=== PATIENT | female | born 1960 | race Caucasian/White ===

== ENCOUNTER 2016-06-10 01:03 | Emergency (ER) | payer OTHER, MEDICARE ==
[~2016-06-10] VITALS: Ht 170.2 cm; Wt 73.5 kg
[2016-06-10 01:07] VITALS: Ht 170.2 cm; Wt 73.5 kg
[2016-06-10] MEDS ORDERED: IBUPROFEN 600 MG TAB PO ONE (03:00)
--- NOTE | 2016-06-10 03:44 | RADRPT ---
PROCEDURE: XR Foot. CLINICAL INDICATION: Fall. Left foot pain. TECHNIQUE: 3 views of the left foot were obtained. COMPARISON: None. FINDINGS: No fracture or dislocation is seen. No foreign body is seen. No marked soft tissue swelling. No s ignificant degenerative change. Rings on the second toe obscure visualization. Tiny heel spur. IMPRESSION: No definite acute fracture or dislocation. Evaluation of the second toe is limited by toe rings. RPTAT: [facility] Physician Reyna Date Time Electronically viewed and signed by Susan Dow Physician on 06/10/2016 03:44 LE/
[2016-06-10] MEDS ORDERED: IBUP800T25 PO (03:49)
--- NOTE | 2016-06-10 06:21 | ERD ---
ER Documentation Chief Complaint Date/Time DATE: 06/10/16 TIME: 06:12 Chief Complaint LT FOOT PAIN S/P MECHANICAL FALL @ 1999 HPI 55-year-old female complaining of left foot pain after a fall. Patient stated that she slipped on her grandchild's toy at home, and bend her left foot backwards. She now has pain on a pop on her left foot. Patient states that she was able to bear weight after the fall. Denies any other injuries. ROS All systems reviewed and are negative except as per history of present illness. Medications Home Meds Active Scripts Ibuprofen* (Motrin*) 800 Mg Tab, 800 MG PO Q6H Y for PAIN AND OR ELEVATED TEMP, #30 TAB Prov:NOLAN BEAR. AERODYNAMICS TEACHER 06/10/16 PMhx/Soc History of Surgery: Yes (LFA fx repair, back sx) Anesthesia Reaction: No Hx Neurological Disorder: Yes (stroke) Hx Alcohol Use: No Hx Substance Use: No Hx Tobacco Use: No Smoking Status: Never smoker Physical Exam Vitals Vital Signs Date Time Temp Pulse Resp B/P Pulse Ox O2 Delivery O2 Flow Rate FiO2 06/10/16 01:07 96.7 78 17 125/71 99 Physical Exam General impression: Well-developed, well-nourished. Alert, oriented, in no acute distress Head: Normocephalic, atraumatic. Eyes: PERRL, EOM normal. Sclerae are normal. Conjunctiva not injected. Neck: Supple, nontender. No lymphadenopathy. No nuchal rigidity. Respiration: Normal respiratory effort. Lungs clear to auscultate bilaterally. No wheezes, rales or rhonchi. Cardiovascular: Regular rate and rhythm. No murmurs or extra heart sounds. Extremities: Bilateral feet normal to inspection, no erythema, swelling, or ecchymosis. Toe rings noted in the bilateral second toes, no toe swelling or tenderness, neurovascularly intact. Diffuse tenderness noted on the dorsal aspect of the left foot. ROM normal. Neuro: Mental status normal, speech normal. COMM[employer]ITIES BROKER grossly intact. Skin: Normal turgor. No rash or lesions. Psych: Normal mood and affect. Results 24 hrs Current Medications Medications (Trade) Dose Ordered Sig/[place] Route PRN Reason Start Time Stop Time Status Last Admin Dose Admin Ibuprofen (Motrin) 600 mg ONCE ONCE PO 06/10/16 03:00 06/10/16 03:01 DC 06/10/16 02:45 PROCEDURE: XR Foot. CLINICAL INDICATION: Fall. Left foot pain. TECHNIQUE: 3 views of the left foot were obtained. COMPARISON: None. FINDINGS: No fracture or dislocation is seen. No foreign body is seen. No marked soft tissue swelling. No significant degenerative change. Rings on the second toe obscure visualization. Tiny heel spur. IMPRESSION: No definite acute fracture or dislocation. Evaluation of the second toe is limited by toe rings. RPTAT: [facility] Physician Reyna Date Time Electronically viewed and signed by Susan Dow Physician on 06/10/2016 03 :44 LE/ CC: NOLAN BEAR AERODYNAMICS TEACHER Procedures/MDM Well-appearing 55-year-old female presented ED was left foot pain. Ibuprofen given to the patient in the ED. X-ray was obtained, no fractures or dislocations were noted. Likely patient had sustained a strain or sprain of the left foot. The area of injury was immobilized with an Papo wrap. Patient was noted to be comfortable and neurovascularly intact both before and after the immobilization. Patient given crutches for ambulation. Patient appears well, stable for discharge and outpatient management. Medical decision making shared with patient and family. Education provided to patient and family. Patient and family expressed understanding of the plan. Medications on discharge: Ibuprofen. Follow-up: Primary care provider in 2-3 days or return to ED if worse. Departure Diagnosis: Primary Impression: Foot sprain Encounter type: initial encounter Laterality: right Qualified Code: S93.601A - Foot sprain, right, initial encounter Condition: Good Patient Instructions: Sprain Foot Referrals: COMM[facility]ITY CLIN[facility] YOU HAVE RECEIVED A MEDICAL SCREENING EXAM AND THE RESULTS INDICATE THAT YOU DO NOT HAVE A CONDITION THAT REQUIRES URGENT TREATMENT IN THE EMERGENCY DEPARTMENT. FURTHER EVALUATION AND TREATMENT OF YOUR CONDITION CAN WAIT UNTIL YOU ARE SEEN IN YOUR DOCTORS OFFICE WITHIN THE NEXT 1-2 DAYS. IT IS YOUR RESPONSIBILITY TO MAKE AN APPOINTMENT FOR FOLOW-UP CARE. IF YOU HAVE A PRIMARY DOCTOR --you should call your primary doctor and schedule an appointment IF YOU DO NOT HAVE A PRIMARY DOCTOR YOU CAN CALL OUR PHYSICIAN REFERRAL HOTLINE AT IF YOU CAN NOT AFFORD TO SEE A PHYSICIAN YOU CAN CHOSE FROM THE FOLLOWING [facility] CL[facility] [address] [facility]. [facility] [address] [facility] [address] [facility] [address] [facility]. [facility] [address] [facility]. [facility] [address] Additional Instructions: Call your primary care doctor TOMORROW for an appointment during the next 1 WEEK.Tell the department secretary that you were referred from this facility.See the doctor sooner or return here if your condition worsens before your appointment time. NOLAN BEAR NP Jun 10, 2016 06:21
== END 2016-06-10 04:10 | disposition home or self-care (01) ==
LOC: FTE 01:03
DX: S93.601A Unspecified sprain of right foot, initial encounter (principal); W01.0XXA Fall on same level from slipping, tripping and stumbling without subsequent striking against object, initial encounter; Y92.009 Unspecified place in unspecified non-institutional (private) residence as the place of occurrence of the external cause